=== PATIENT | male | born 1950 | race Caucasian/White ===

== ENCOUNTER 2020-08-18 06:08 | Day surgery (SDC) | payer OTHER, BC ==
[2020-08-17 14:14] VITALS: BMI 28.1
[2020-08-18] MEDS ORDERED: PROPOFOL 20 ML ONE ×2 (07:37)
[2020-08-18] MEDS ORDERED: SUCCINYLCHOLINE CHLORIDE 200 MG/10 ML SYRINGE ONE (07:37)
[2020-08-18] MEDS ORDERED: MIDAZOLAM HCL 2 MG/2 ML SINGLE DOSE VIAL ONE ×3 (07:37→09:50)
[2020-08-18] MEDS ORDERED: BACITRACIN 15 GM TUBE TOPICAL OINTMENT ONE (07:41)
[2020-08-18] MEDS ORDERED: LIDOCAINE HCL 1%, 10 MG/ML (20ML VIAL) ONE (07:41)
[2020-08-18] MEDS ORDERED: ceFAZolin 2 GRAM PREMIX BAG IVPB ONE (08:15)
[2020-08-18] MEDS ORDERED: ceFAZolin SODIUM 1 GM VIAL ONE (08:19)
[2020-08-18] MEDS ORDERED: LIDOCAINE HCL 1%, 10 MG/ML (20ML VIAL) INF ONE (08:59)
[2020-08-18] MEDS ORDERED: BUPIVACAINE HCL/PF 0.5% (5 MG/ML) 30 ML VIAL IJ ONE (08:59)
[2020-08-18 09:35] VITALS: TEMP 97.1
[2020-08-18 11:53] VITALS: BP 160/90; PULSE 60
== END 2020-08-18 11:10 | disposition home or self-care (01) ==
LOC: JASU-SURG 06:08
PROVIDERS: ATTEND Surgery
PROC: 0HB6XZZ Excision of Back Skin, External Approach (ICD-10-PCS; principal; 2020-08-18 08:00)
DX: L72.3 Sebaceous cyst (principal)
CPT/HCPCS: 88304-TC